=== PATIENT | female | born 1985 ===

== ENCOUNTER 2016-04-26 19:32 | Inpatient (IN) | payer OTHER ==
[~2016-04-26] VITALS: Ht 162.6 cm; Wt 78.0 kg
[2016-04-26] MEDS ORDERED: LACTATED RINGER'S 1000 ML IV STA (19:43)
[2016-04-26] MEDS ORDERED: FENTANYL 2MCG/ML ROPIVACAINE 0.2% NACL 250 ML CADD As Ordered ONE (20:00)
[2016-04-26 20:15] LABS: MEAN CORPUSCULAR HEMOGLOBIN 30.8 pg (27.0-33.0); MEAN CORPUSCULAR HGB CONC 34.8 g/dl (32.0-36.5); MEAN CORPUSCULAR VOLUME 88.4 fl (80.0-96.0); RED CELL DISTRIBUTION WIDTH 13.5 % (11.5-14.5); WHITE BLOOD COUNT 9.6 K/mm3 (4.0-10.0)
[2016-04-26] MEDS ORDERED: REFRIGERATOR IV KEYS XX PRN (21:02)
[2016-04-26] MEDS ORDERED: ONDANSETRON 4MG/2ML VIAL (J2405) IV PRN (21:02)
[2016-04-26] MEDS ORDERED: EPIDURAL COMMENT XX SCH (21:02)
[2016-04-26] MEDS ORDERED: EPIDURAL/PCA KEYS XX PRN (21:02)
[2016-04-26] MEDS ORDERED: ePHEDrine SULFATE 25 MG/5 ML(5MG/ML) SYRINGE IV PRN (21:02)
[2016-04-26] MEDS ORDERED: NALOXONE INJ 0.4 MG/1 ML VIAL (J2310) IV PRN (21:02)
[2016-04-26] MEDS ORDERED: LACTATED RINGER'S 1000 ML IV PRN (21:02)
[2016-04-26] MEDS ORDERED: diphenhydrAMINE INJ 50MG/ML VIAL (J1200) IV PRN (21:02)
[2016-04-26] MEDS ORDERED: OXYTOCIN 30 UNITS IN 0.9% NaCl 500ML IV BAG (J2590) As Ordered ONE (21:27)
[2016-04-27] MEDS ORDERED: OXYTOCIN DRIP 30 UNITS in APPROPRIATE DILUENT 1 EA IV SCH (02:32)
[2016-04-27] MEDS ORDERED: DIBUCAINE 1% OINTMENT 30GM TOP PRN (02:45)
[2016-04-27] MEDS ORDERED: IBUPROFEN 800 MG TAB PO PRN (02:45)
[2016-04-27] MEDS ORDERED: MEASLES,MUMPS,RUBELLA VACCINE INJ (MMR-II) (90707) SC SCH (02:45)
[2016-04-27] MEDS ORDERED: METHYLERGONOVINE MALEATE 0.2 MG/ML VIAL (J2210) IM PRN (02:45)
[2016-04-27] MEDS ORDERED: RHOGAM 300 MCG (1500 IU) INJ (J2790) IM SCH (02:45)
[2016-04-27 03:55] VITALS: BP 130/59
[2016-04-27] MEDS: ACETAMINOPHEN 500 MG TAB PO PRN ×2 (04:22→19:44)
[2016-04-27] MEDS: DOCUSATE SODIUM 100 MG CAP PO SCH ×2 (07:54→19:43)
[2016-04-27] MEDS: PRENATAL VITAMIN TAB PO SCH (07:55)
[2016-04-27 17:56] VITALS: BP 137/67
[2016-04-28 06:21] VITALS: BP 115/58
--- NOTE | 2016-04-28 06:51 | IPNPDOC ---
Text Note Date of Service The patient was seen on 04/28/16 at 06:49. NOTE PPD1 prog note Pt states feeling well, minimal pain. VB slowing. Brst feeding OK. No CP/LP/ SOB. Voiding and ambulatory. VSSAF Fundus at U-1, firm LE no CCE a/p: Doing well. Discharge today, to boarding if baby not d/c'd. Sessions VS,Ml, I+O VSMl I+O Vital Signs Date Time Temp Pulse Resp B/P Pulse Ox O2 Delivery O2 Flow Rate FiO2 04/28/16 06:21 97.6 71 16 115/58 04/27/16 03:55 99 Room Air I&O- Last 24 Hours up to 6 AM 04/28/16 06:00 Intake Total 240 ml Balance 240 ml SESSIONS,KAIA Bolden MD Apr 28, 2016 06:51
--- NOTE | 2016-04-28 06:58 | DS.PDOC ---
Discharge Summary General Date of Admission Apr 26, 2016 at 19:41 Date of Discharge [id number] Discharge Summary COMPLICATIONS/CHIEF COMPLAINT: Active labor ADMISSION DIAGNOSES: 1. Labor DISCHARGE DIAGNOSES: 1. Normal spontaneous vaginal delivery HOSPITAL COURSE: Patient was admitted for labor by Dr Dominguez. All care and delivery done by Dr Dominguez. Received an epidural. Uncomplicated delivery, 1st degree laceration only. Met all discharge criteria on post-delivery day 1. DISCHARGE MEDICATIONS: Motrin, Tylenol, Lanolin, Colace, undecided on control PHYSICAL EXAMINATION ON DISCHARGE: see prog note from this AM VITAL SIGNS: Please see below. DISCHARGE CONDITION: stable DISPOSITION: to home ACTIVITY: Nothing in the vagina for 6-8 weeks. Regular diet. DISCHARGE PLAN AND INSTRUCTIONS: follow up at 6 week visit. Sessions TIME SPENT ON DISCHARGE: Greater than [15] minutes. Vital Signs/I&Os Vital Signs Date Time Temp Pulse Resp B/P Pulse Ox O2 Delivery O2 Flow Rate FiO2 04/28/16 06:21 97.6 71 16 115/58 04/27/16 03:55 99 Room Air I&O- Last 24 Hours up to 6 AM 04/28/16 06:00 Intake Total 240 ml Balance 240 ml Medications No Active Prescriptions or Reported Meds Allergies Coded Allergies: No Known Drug Allergy (Verified Allergy, Unknown, 04/26/16) SESSIONSKAIA MD Apr 28, 2016 06:58
[2016-04-28] MEDS: DOCUSATE SODIUM 100 MG CAP PO SCH (07:22)
[2016-04-28] MEDS: PRENATAL VITAMIN TAB PO SCH (07:22)
[2016-04-28] MEDS ORDERED: ACET50TA PO (07:32)
[2016-04-28] MEDS ORDERED: PRENTAB9 PO (07:32)
[2016-04-28] MEDS ORDERED: COLA100C PO (07:32)
[2016-04-28] MEDS ORDERED: IBUP-1114 PO (07:32)
[2016-04-28] MEDS ORDERED: NUPE1OIN2 TOP (07:33)
== END 2016-04-28 10:15 | disposition home or self-care (01) | DRG 775 ==
LOC: M LDO 19:32 → M LDI 19:41 → M OBS 04-27 04:10
PROVIDERS: ADMIT Obstetrics & Gynecology; ATTEND Obstetrics & Gynecology
PROC: 10907ZC Drainage of Amniotic Fluid, Therapeutic from Products of Conception, Via Natural or Artificial Opening (ICD-10-PCS; 2016-04-26)
PROC: 10E0XZZ Delivery of Products of Conception, External Approach (ICD-10-PCS; principal; 2016-04-27)
PROC: 0HQ9XZZ Repair Perineum Skin, External Approach (ICD-10-PCS; 2016-04-27)
DX: O70.0 First degree perineal laceration during delivery (principal); Z37.0 Single live birth; Z3A.38 38 weeks gestation of pregnancy